=== PATIENT | female | born 1990 | race American Indian/Alaskan Native ===

== ENCOUNTER 2017-04-24 09:35 | Emergency (ER) | payer MEDICAID ==
--- NOTE | 2017-04-24 13:58 | Emergency Department Report ---
ED Fall HPI - General Chief Complaint: Fall Stated Complaint: FALL Time Seen by Provider: 04/24/17 13:52 Source: patient, family (Ryan), EMS Mode of arrival: Wheelchair Limitations: No Limitations - History of Present Illness Initial Comments: Patient presents to emergency room report that she's been told in the past that she has a high probability of having multiple sclerosis and this started at age 22 when she started having blurred vision and weakness in her leg. She said today she misjudged a step today and came out of the passenger seat and slid to the ground because she did not have any strength in her leg. She denies any bruising to her legs. Denies any back pain. Denies any urinary burning frequency or urgency. She has sensation but she said that she doesn't have the strength in her legs. She says she was on the way to a primary care but she just got insurance again to be referred to a neurologist for MRI but because she fell as they took her to the emergency room because she cannot walk. She denies any fever or chills denies any headache. Last menstrual period was 04/03 pain to the lower legs is 3 independent doll. Has a history of blurred vision and weakness in her legs. 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 denies: headache, neck pain, numbness, chest paint, shortness of breath, abdominal pain, hematuria, lightheaded, vertigo, confusion - Related Data Allergies Allergy/AdvReac Type Severity Reaction Status Date / Time burlap Allergy Unknown Uncoded 04/24/17 09:50 ED Review of Systems ROS: Stated complaint: FALL Other details as noted in HPI Comment: All other systems reviewed and negative Constitutional: denies: chills, fever Eyes: vision change (blurred vision on and off) ENT: denies: ear pain, throat pain, hearing loss, congestion Respiratory: no symptoms reported Cardiovascular: denies: chest pain, palpitations, edema, syncope Gastrointestinal: denies: abdominal pain, nausea, vomiting, diarrhea, constipation, hematemesis, melena, hematochezia Musculoskeletal: denies: back pain, joint swelling, arthralgia, myalgia Skin: denies: rash Neurological: weakness, abnormal gait. denies: headache, numbness, paresthesias , confusion, vertigo ED Past Medical Hx - Past Medical History Previous Medical History?: Yes Additional medical history: weakness in legs - Surgical History Past Surgical History?: No - Family History Family history: no significant - Social History Smoking Status: Former Smoker Substance Use Type: Alcohol, Prescribed Other Social History: Single female ED Physical Exam - General Limitations: Physical Limitation General appearance: alert, in no apparent distress - Head Head exam: Present: atraumatic, normocephalic, normal inspection - Eye Eye exam: Present: normal appearance, PERRL, EOMI. Absent: scleral icterus, conjunctival injection, nystagmus, periorbital swelling, periorbital tenderness Pupils: Present: normal accommodation - ENT ENT exam: Present: normal exam, normal orophraynx, mucous membranes moist, TM's normal bilaterally, normal external ear exam - Neck Neck exam: Present: normal inspection, tenderness, full ROM. Absent: meningismus, lymphadenopathy - Respiratory Respiratory exam: Present: normal lung sounds bilaterally. Absent: respiratory distress, chest wall tenderness - Cardiovascular Cardiovascular Exam: Present: regular rate, normal rhythm, normal heart sounds. Absent: systolic murmur, diastolic murmur - GI/Abdominal GI/Abdominal exam: Present: soft, normal bowel sounds. Absent: distended, tenderness, guarding, rebound, rigid - Extremities Exam Extremities exam: Present: normal capillary refill. Absent: normal inspection, full ROM, tenderness, pedal edema, joint swelling, calf tenderness - Expanded Lower Extremity Exam Left Hip exam: Present: normal inspection, pelvic stability. Absent: full ROM, tenderness, swelling, abrasion, laceration, ecchymosis, deformity, crepidus, dislocation, erythema, external rotation, internal rotation, shortening Upper Leg exam: Present: normal inspection. Absent: full ROM, tenderness, swelling, abrasion, laceration, ecchymosis, deformity, crepidus, dislocation, erythema Knee exam: Present: normal inspection. Absent: full ROM, tenderness, swelling, abrasion, laceration, ecchymosis, deformity, crepidus, dislocation, erythema, effusion, pain w/ pronation/supination, full knee extension Lower Leg exam: Present: normal inspection. Absent: full ROM (patient able to move legs but she has severe limitation.), tenderness, swelling, abrasion, laceration, ecchymosis, deformity, crepidus, dislocation, erythema, palpable cord Ankle exam: Present: normal inspection. Absent: full ROM, tenderness, swelling , abrasion, laceration, ecchymosis, deformity, crepidus, dislocation, erythema Foot/Toe exam: Present: normal inspection. Absent: full ROM, tenderness, swelling, abrasion, laceration, ecchymosis, deformity, crepidus, dislocation, erythema, amputation, puncture wound, foreign body, calcaneal tenderness, tenderness at base of 5th metatarsal, nail avulsion, subungual hematoma Neuro vascular tendon exam: Present: no vascular compromise, motor deficit. Absent: pulse deficit, abnormal cap refill, sensory deficit, tendon deficit, extremity cold to touch, pallor, abnormal 2-point discrimination, decreased fine /light touch, foot drop, peroneal nerve deficit, significant pain with passive ROM of distal joint Gait: Positive: unable to bear weight (patient unable to walk.) Right Hip exam: Present: normal inspection, pelvic stability. Absent: full ROM, tenderness, swelling, abrasion, laceration, ecchymosis, deformity, crepidus, dislocation, erythema, external rotation, internal rotation, shortening Upper Leg exam: Present: normal inspection. Absent: full ROM, tenderness, swelling, abrasion, laceration, ecchymosis, deformity, crepidus, dislocation, erythema Knee exam: Present: normal inspection, full knee extension. Absent: full ROM, tenderness, swelling, abrasion, laceration, ecchymosis, deformity, crepidus, dislocation, erythema, effusion, pain w/ pronation/supination, posterior draw sign, pain/laxity with valgus, pain/laxity with varus Lower Leg exam: Present: normal inspection. Absent: full ROM (able to move leg with severe), tenderness ( limitation), swelling, abrasion, laceration, ecchymosis, deformity, crepidus, dislocation, erythema, palpable cord, Joseph's sign Ankle exam: Present: normal inspection. Absent: full ROM, tenderness, swelling , abrasion, laceration, ecchymosis, deformity, crepidus, dislocation, erythema Foot/Toe exam: Present: normal inspection. Absent: full ROM, tenderness, swelling, abrasion, laceration, ecchymosis, deformity, crepidus, dislocation, erythema, amputation, puncture wound, foreign body, calcaneal tenderness, tenderness at base of 5th metatarsal, nail avulsion, subungual hematoma Neuro vascular tendon exam: Present: no vascular compromise, motor deficit. Absent: pulse deficit, abnormal cap refill, sensory deficit, tendon deficit, extremity cold to touch, pallor, abnormal 2-point discrimination, decreased fine /light touch, foot drop, peroneal nerve deficit, significant pain with passive ROM of distal joint Gait: Positive: unable to bear weight - Back Exam Back exam: Present: normal inspection, full ROM. Absent: tenderness, CVA tenderness (R), CVA tenderness (L), muscle spasm, paraspinal tenderness, vertebral tenderness, rash noted - Neurological Exam Neurological exam: Present: alert, oriented X3, abnormal gait (patient unable to weight-bear and stand.), motor sensory deficit (she has limited movement to bilateral lower extremity .1/5 strength to both extremity. She has normal sensation). Absent: reflexes normal (diminished knee and ankle reflexes) - Expanded Neurological Exam Expanded Neurological exam: Absent: innattentive, memory loss-remote event, memory loss- recent event, ataxia, receptive aphasia, expressive aphasia, total aphasia, tremor, protecting the airway Patient oriented to: Present: person, place, time Speech: Present: fluid speech Cranial nerves: EOM's Intact: Normal, Gag Reflex: Normal, Tongue Deviation: Normal, Nystagmus: Normal, Facial Sensation: Normal Cerebellar function: Finger to Nose: Normal, Romberg: Normal Upper motor neuron: Sensory Extinction: Normal Sensory exam: Upper Extremity Light Touch: Normal, Upper Extremity Pin Prick: Normal, Upper Extremity Temperature: Normal, UE 2 Point Discrimination: Normal, Lower Extremity Light Touch: Normal, Lower Extremity Pin Prick: Normal, Lower Extremity Temperature: Normal, LE 2 Point Discrimination: Normal Motor strength exam: RUE: 5, LUE: 5, RLE: 2/1 (1), LLE: 2/1 (1) DTR: bicep (R): 2+, bicep (L): 2+, tricep (R): 2+, tricep (L): 2+, knee (L): 1+ , ankle (R): 1+, ankle (L): 1+ Best Eye Response (Stanislav): (4) open spontaneously Best Motor Response (Stanislav): (6) obeys commands Best Verbal Response (Stanislav): (5) oriented Stanislav Total: 15 - Psychiatric Psychiatric exam: Present: normal affect, normal mood - Skin Skin exam: Present: warm, dry, intact, normal color. Absent: rash ED Course Vital Signs 04/24/17 04/24/17 04/24/17 09:50 16:34 18:59 Temperature 98.9 F 98.9 F 99.2 F Pulse Rate 96 H 94 H 92 H Respiratory 18 16 16 Rate Blood Pressure 148/100 Blood Pressure 126/78 148/74 [Right] O2 Sat by Pulse 100 100 98 Oximetry - Reevaluation(s) Reevaluation #1: 04/24/17 18:50 Patient receiving Solu-Medrol 1 g IV. I spoke with Dr. Linn who evaluated patient and it was decided the patient will be transferred to another hospital for neurology consult due to bilateral lower extremity weakness, episodic blurred vision and CT scan result that suggest demyelination. Patient will be transferred to be evaluated for scoliosis. I spoke with Dr. Dewey at [facility] who is neurologist and he accepted patient. Patient and family agrees with transfer and awaiting bed at [facility] to give report and called for transport. Stable and no change in status since arrival. Reevaluation #2: 04/24/17 20:36 Patient remained stable. Awaiting transfer to [facility] neurology. - Consultations Consultation #1: 04/24/17 18:55 DR Dewey [facility] Neurologist ED Medical Decision Making - Lab Data Result diagrams: 04/24/17 15:16 04/24/17 15:16 Lab Results 04/24/17 04/24/17 04/24/17 Range/Units 15:16 15:16 15:16 WBC 8.5 (4.5-11.0) K/mm3 RBC 4.43 (3.65-5.03) M/mm3 Hgb 12.4 (10.1-14.3) gm/dl Hct 37.9 (30.3-42.9) % MCV 86 (79-97) fl MCH 28 (28-32) pg MCHC 33 (30-34) % RDW 15.6 H (13.2-15.2) % Plt Count 329 (140-440) K/mm3 Lymph % (Auto) 25.4 (13.4-35.0) % [place] % (Auto) 5.8 (0.0-7.3) % Eos % (Auto) 0.8 (0.0-4.3) % Baso % (Auto) 0.3 (0.0-1.8) % Lymph # 2.2 (1.2-5.4) K/mm3 [place] # 0.5 (0.0-0.8) K/mm3 Eos # 0.1 (0.0-0.4) K/mm3 Baso # 0.0 (0.0-0.1) K/mm3 Seg Neutrophils % 67.7 (40.0-70.0) % Seg Neutrophils # 5.8 (1.8-7.7) K/mm3 Sodium 140 (137-145) mmol/L Potassium 3.7 (3.6-5.0) mmol/L Chloride 100.8 (98-107) mmol/L Carbon Dioxide 24 (22-30) mmol/L Anion Gap 19 mmol/L BUN 9 (7-17) mg/dL Creatinine 0.6 L (0.7-1.2) mg/dL Estimated GFR > 60 ml/min BUN/Creatinine Ratio 15.00 % Glucose 95 (65-100) mg/dL Calcium 9.3 (8.4-10.2) mg/dL Total Bilirubin 0.50 (0.1-1.2) mg/dL AST 19 (5-40) units/L ALT 14 (7-56) units/L Alkaline Phosphatase 88 (35-129) units/L Total Protein 8.5 H (6.3-8.2) g/dL Albumin 4.3 (3.9-5) g/dL Albumin/Globulin Ratio 1.0 % HCG, Qual Negative (Negative) Urine Color (Yellow) Urine Turbidity (Clear) Urine pH (5.0-7.0) Ur Specific [place] (1.003-1.030) Urine Protein (Negative) mg/dL Urine Glucose (UA) (Negative) mg/dL Urine Ketones (Negative) mg/dL Urine Blood (Negative) Urine Nitrite (Negative) Urine Bilirubin (Negative) Urine Urobilinogen (<2.0) mg/dL Ur Leukocyte Esterase (Negative) Urine WBC (Auto) (0.0-6.0) /HPF Urine RBC (Auto) (0.0-6.0) /HPF U Epithel Cells (Auto) (0-13.0) /HPF Urine Bacteria (Auto) (Negative) /HPF Urine Mucus /HPF 04/24/17 Range/Units Unknown WBC (4.5-11.0) K/mm3 RBC (3.65-5.03) M/mm3 Hgb (10.1-14.3) gm/dl Hct (30.3-42.9) % MCV (79-97) fl MCH (28-32) pg MCHC (30-34) % RDW (13.2-15.2) % Plt Count (140-440) K/mm3 Lymph % (Auto) (13.4-35.0) % [place] % (Auto) (0.0-7.3) % Eos % (Auto) (0.0-4.3) % Baso % (Auto) (0.0-1.8) % Lymph # (1.2-5.4) K/mm3 [place] # (0.0-0.8) K/mm3 Eos # (0.0-0.4) K/mm3 Baso # (0.0-0.1) K/mm3 Seg Neutrophils % (40.0-70.0) % Seg Neutrophils # (1.8-7.7) K/mm3 Sodium (137-145) mmol/L Potassium (3.6-5.0) mmol/L Chloride (98-107) mmol/L Carbon Dioxide (22-30) mmol/L Anion Gap mmol/L BUN (7-17) mg/dL Creatinine (0.7-1.2) mg/dL Estimated GFR ml/min BUN/Creatinine Ratio % Glucose (65-100) mg/dL Calcium (8.4-10.2) mg/dL Total Bilirubin (0.1-1.2) mg/dL AST (5-40) units/L ALT (7-56) units/L Alkaline Phosphatase (35-129) units/L Total Protein (6.3-8.2) g/dL Albumin (3.9-5) g/dL Albumin/Globulin Ratio % HCG, Qual (Negative) Urine Color Yellow (Yellow) Urine Turbidity Cloudy (Clear) Urine pH 5.0 (5.0-7.0) Ur Specific [place] 1.027 (1.003-1.030) Urine Protein <15 mg/dl (Negative) mg/dL Urine Glucose (UA) Neg (Negative) mg/dL Urine Ketones Neg (Negative) mg/dL Urine Blood Neg (Negative) Urine Nitrite Neg (Negative) Urine Bilirubin Neg (Negative) Urine Urobilinogen < 2.0 (<2.0) mg/dL Ur Leukocyte Esterase Mod (Negative) Urine WBC (Auto) 3.0 (0.0-6.0) /HPF Urine RBC (Auto) 5.0 (0.0-6.0) /HPF U Epithel Cells (Auto) 52.0 H (0-13.0) /HPF Urine Bacteria (Auto) 1+ (Negative) /HPF Urine Mucus 2+ /HPF - Radiology Data Radiology results: report reviewed CT scan of the brain without contrast reports high right frontoparietal hypodensities, not excluded for demyelinization in light of provided history which is bilateral lower extremity weakness and blurred vision. Radiologist suggested an MRI of the brain with and without contrast. - Medical Decision Making ED course: Patient and family presents to emergency room and patient reporting that she been having progressive since age 22 which has been intermittent. She states she also started to experience blurred vision since age 22. She said she had been to a primary care physician on multiple occasion and he told her that there is a high probability that she had but she said she did not have any insurance so she could not follow up with neurology. She says she got insurance and she was on her way to see a primary care physician today so she could be referred to a neurologist that she fell when her legs gave out. Patient has no injury from falling but she cannot stand due to weakness in her bilateral lower extremity. She is able to move and motor movement is limited sensory is intact. Patient neurologically intact except for diminished in reflex in her lower extremities and motor movement. I spoke with Dr. Brandon was the tendon and he evaluated patient and patient was given Solu-Medrol 1 g IV. Patient had lab work and her CBC is stable chemistries stable urinalysis shows that she has a bladder infection with moderate leukocyte Estrace and 1+ bacteria there is a high probability for contamination due to elevated epithelial cell in urinalysis. He isn't 1 g of Rocephin IM to cover urinary tract infection. It was decided the patient will be transferred to [facility] for neurology to evaluate for multiple sclerosis. Patient and family agrees to transport plan. To Dr. Dewey with the neurologist at [facility] in and he accepted patient and transfer center will call back when there is a bed available which will be tonight her transfer center. Diagnostic/labs: The lab section for details and please refer to radiology section for CT scan of the brain results. 1. Bilateral lower extremity weakness-progressing. Suspect multiple sclerosis CT scan of brain with high suspicion for demyelinization. Patient will be transferred to [facility] to neurology service for further evaluation. 2. Arthralgia Bilateral lower extremity 3. Acute cystitis without hematuria 4. Accidental fall due to bilateral lower extremity weakness Patient accepted by [facility] neurology service and await in available bed. Patient is stable and updated. She has been given 1 g of Solu-Medrol and also given Rocephin 1 g for urinary tract infection. Vital Signs are stable. Critical care attestation.: If time is entered above; I have spent that time in minutes in the direct care of this critically ill patient, excluding procedure time. ED Disposition Clinical Impression: Acute cystitis without hematuria Weakness of lower extremity Qualifiers: Laterality: bilateral Qualified Code(s): R29.898 - Other symptoms and signs involving the musculoskeletal system Accidental fall Qualifiers: Encounter type: initial encounter Qualified Code(s): W19.XXXA - Unspecified fall, initial encounter Disposition: DC/TX-70 ANOTHER TYPE HLTHCARE Is pt being admited?: No Does the pt Need Aspirin: No Condition: Stable Referrals: PRIMARY CARE, [Primary Care Provider] - 3-5 Days
[2017-04-24 15:45] LABS: Basophils % (Auto) 0.3 % (0.0-1.8); Eosinophils % (Auto) 0.8 % (0.0-4.3); Hematocrit 37.9 % (30.3-42.9); Hemoglobin 12.4 gm/dl (10.1-14.3); Mean Corpuscular HGB Conc 33 % (30-34); Mean Corpuscular Hemoglobin 28 pg (28-32); Mean Corpuscular Volume 86 fl (79-97); Platelet Count 329 K/mm3 (140-440); Red Blood Count 4.43 M/mm3 (3.65-5.03); Red Cell Distribution Width 15.6 % (13.2-15.2); White Blood Count 8.5 K/mm3 (4.5-11.0)
[2017-04-24 15:53] LABS: Alanine Aminotransferase 14 units/L (7-56); Albumin 4.3 g/dL (3.9-5); Alkaline Phosphatase 88 units/L (35-129); Anion Gap 19 mmol/L; Blood Urea Nitrogen 9 mg/dL (7-17); Calcium 9.3 mg/dL (8.4-10.2); Carbon Dioxide 24 mmol/L (22-30); Chloride 100.8 mmol/L (98-107); Glucose 95 mg/dL (65-100); Potassium 3.7 mmol/L (3.6-5.0); Sodium 140 mmol/L (137-145); Total Protein 8.5 g/dL (6.3-8.2)
[2017-04-24 15:55] LABS: Bacteria,Urine 1+ /HPF (Negative); Bilirubin,Urine NEG (Negative); Blood,Urine NEG (Negative); Ketones,Urine NEG (Negative); Leukocyte Esterase,Urine MOD (Negative); Mucus,Urine 2+ /HPF; Nitrite,Urine NEG (Negative); Protein,Urine <15 mg/dL mg/dL (Negative); Urobilinogen,Urine < 2.0 mg/dL (<2.0)
--- NOTE | 2017-04-24 16:23 | Cat Scan Report ---
CT HEAD WITHOUT CONTRAST INDICATION: Possible MS. Bilateral lower extremity weakness. COMPARISON: None similar. FINDINGS: Noncontrast head CT with few images repeated for motion artifact demonstrate symmetric ventricles and sulci. High right posterior frontal white matter and periventricular parietal hypodensities may be noted as on axial image 41, series 2 measuring up to 1.4 cm, not excluded for subtle infarction versus demyelination, amongst others, on CT alone. No acute hemorrhage, mass effect or midline shift. No abnormal extra axial fluid collections. Normal posterior fossa with preserved basilar cisterns. Normal eye globes. Clear paranasal sinuses and mastoid air cells. Normal calvarium and scalp. CONCLUSION: High right frontoparietal hypodensities, not excluded for demyelination in light of the provided history, amongst others, as described. MRI brain with and without contrast would help further characterize, if so warranted. Thank you for the opportunity to participate in this patient's care.
[2017-04-24] MEDS ORDERED: ROCEPHIN/NS 1 GM/50 ML 1 GM/50 ML BAG IV ONE (19:02)
[2017-04-24 22:52] VITALS: BP 156/77
== END 2017-04-24 23:33 | disposition other institution (70) ==
LOC: ED 09:35
DX: N30.00 Acute cystitis without hematuria (principal); R29.898 Other symptoms and signs involving the musculoskeletal system; Z87.891 Personal history of nicotine dependence; Z88.8 Allergy status to other drugs, medicaments and biological substances; W19.XXXA Unspecified fall, initial encounter; Y93.89 Activity, other specified; Y99.9 Unspecified external cause status; Y92.89 Other specified places as the place of occurrence of the external cause
CPT/HCPCS: 36415; 70450; 80053; 81001; 84703; 85025; 96365; 96367; 99285; J0696; J2930; J7050

== ENCOUNTER 2020-04-21 23:11 | Inpatient (IN) | payer MEDICAID ==
[2020-04-22] MEDS ORDERED: ZOLPIDEM 5 MG TAB PO PRN (01:35)
[2020-04-22] MEDS ORDERED: LACTATED RINGERS 1,000 ML IV SCH (02:00)
--- NOTE | 2020-04-22 03:22 | Ultrasound Report ---
US OB follow up INDICATION / CLINICAL INFORMATION: Bleeding. COMPARISON: None available. FINDINGS: A single live fetus is seen in the uterus with heart rate ranging from 81 to 140. The fetus has 1 arm and 1 leg plus the umbilical cord with fluid in the cervix. Decreased amniotic fluid is seen. Abdominal circumference is 13.7 = 19 weeks 1 day Femur length is 4.1 equals 23 weeks 2 days IMPRESSION: 1. Single live fetus in the uterus with heart rate ranging from 81-140. One arm, one leg and th e umbilical cord with fluid are seen in the cervix. 2. Decreased amniotic fluid Signer Name: Lyndon Camacho MD FACR Signed: 04/22/2020 3:18 AM Workstation Name: [id number]
[2020-04-22] MEDS ORDERED: LANOLIN/ZINC/DIMETHICONE (LANSINOH) 7 GM TP PRN (08:00)
--- NOTE | 2020-04-22 08:12 | History and Physical Report ---
History of Present Illness Date of examination: 04/22/20 Date of admission: April 22, 2020 Chief complaint: Vaginal bleeding History of present illness: 30-year-old -1-0-0 at 21+6 weeks who presents with a chief complaint of vaginal bleeding. The patient arrived via EMS. OB ultrasound was performed that demonstrated evidence of arm and leg being found in the vagina contained within the amniotic sac. The ultrasound showed evidence of cardiac activity. [place] gestation with a ultrasound age of 21 weeks and 2 days. Patient denied any traumatic event for her symptoms. The patient states having history of a prior 26-week delivery for which the secondary to severe prematurity. Past History Past Medical History: other (Multiple sclerosis; uterine fibroids) Past Surgical History: myomectomy, other Social history: single - Obstetrical History Expected Date of Delivery: 08/27/20 Actual Gestation: 21 Week(s) 6 Day(s) : 2 Para: 0 Hx # Term Pregnancies: 0 Number of Pregnancies: 1 Spontaneous Abortions: 0 Induced : 0 Number of Living Children: 0 Medications and Allergies Allergies Allergy/AdvReac Type Severity Reaction Status Date / Time burlap Allergy Unknown Uncoded 04/24/17 09:50 Home Medications Medication Instructions Recorded Confirmed Last Taken Type Vitamin 1 mg PO QDAY 04/22/20 04/22/20 04/21/20 10:00 History Active Meds: Active Medications Lactated Ringer's (Lactated Ringers) 1,000 mls @ 125 mls/hr IV DIRECT TEN Last Admin: 04/22/20 02:01 Dose: 125 mls/hr Documented by: Zolpidem Tartrate (Ambien) 10 mg PO QHS PRN PRN Reason: Sleep Last Admin: 04/22/20 02:00 Dose: 10 mg Documented by: Review of Systems All systems: negative Genitourinary: vaginal bleeding - Vital Signs Vital signs: Vital Signs Pulse BP 77 118/56 04/21/20 23:25 04/21/20 23:25 Temp Pulse Resp BP Pulse Ox 97.9 F 87 18 118/56 100 04/21/20 23:26 04/22/20 08:04 04/21/20 23:26 04/21/20 23:26 04/22/20 08:04 - Physical Exam Breasts: Positive: deferred Cardiovascular: Regular rate Lungs: Positive: Clear to auscultation Results All other labs normal. Assessment and Plan - Patient Problems (1) labor Current Visit: Yes Status: Acute Plan to address problem: Admit for expectant management (2) Incompetent cervix Current Visit: Yes Status: Acute
--- NOTE | 2020-04-22 08:15 | Procedure Note ---
OB Delivery Note - Delivery Date of Delivery: 04/22/20 Surgeon: ANNY SNYDER Estimated blood loss: <100cc - Vaginal Delivery presentation: breech Intrapartum events: labor-<37 weeks, other(please specify) ( demise) Route of delivery: Episiotomy: none Delivery laceration: none Anesthesia: none Delivery comments: The patient experienced spontaneous delivery of the fetus contains within the amniotic sac including the placenta. The patient is neurological sensation is compromised secondary to her multiple sclerosis and she was unaware that the infant had delivered. [facility] The amniotic sac was intact along with the placenta. There was evidence of clear fluid in the amniotic sac upon amniotomy. The infant was nonviable. The infant appeared to be phenotypically normal consistent with a male . There was no e vidence of any active bleeding after the delivery. The patient received routine care. - A at 1 minute: 0 at 5 minutes: 0 Gender: Male
--- NOTE | 2020-04-22 08:17 | Discharge Summary ---
Providers - Providers Date of Admission: April 22, 2020 Date of discharge: 04/22/20 Attending physician: ANNY SNYDER Primary care physician: DEPOSIT REFUND CLERK Hospitalization Reason for admission: other ( delivery) Delivery: Discharge diagnosis: other (Incompetent cervix), intrapartum demise baby: male Hospital course: The patient presented to labor and delivery via EMS secondary to vaginal bleeding. The patient had evidence of delivery. She subsequently delivered a nonviable male infant at 21+6 weeks. Her course was uneventful. Condition at discharge: Good Disposition: DC-01 TO HOME OR SELFCARE - Discharge Diagnoses (1) labor Status: Acute (2) Incompetent cervix Status: Acute Plan - Discharge Medications Prescriptions: Ibuprofen [Motrin] 800 mg PO Q8HR PRN #30 tablet PRN Reason: Pain , Severe (7-10) - Provider Discharge Summary Activity: no sex for 6 weeks Diet: routine Instructions: routine Additional instructions: [] Smoking cessation referral if applicable(refer to patient education folder for contact #) [] Refer to [facility] Booklet Call your doctor immediately for: * Fever > 100.5 * Heavy vaginal bleeding ( >1 pad per hour) * Severe persistent headache * Shortness of breath * Reddened, hot, painful area to leg or breast * Patient can schedule visit in 4 weeks at [facility] [employer] [address] [place] [phone] - Follow up plan
[2020-04-22] MEDS ORDERED: diphenhydrAMINE 25 MG CAP PO PRN (08:30)
[2020-04-22] MEDS ORDERED: ACETAMINOPHEN 325 MG TAB PO PRN (08:30)
[2020-04-22] MEDS ORDERED: WITCH HAZEL/ GLYCERIN PAD TP PRN (08:30)
[2020-04-22] MEDS ORDERED: ONDANSETRON 4 MG/2 ML INJ IV PRN (09:00)
[2020-04-22] MEDS ORDERED: HYDROcodone/ACETAMINOPHEN 5-325 MG TAB PO PRN (09:00)
[2020-04-22] MEDS ORDERED: IBUPROFEN 600 MG TAB PO SCH (09:00)
[2020-04-22] MEDS ORDERED: PROMETHAZINE 25 MG TAB PO PRN (09:00)
[2020-04-22] MEDS ORDERED: PROMETHAZINE 25 MG RECT SUPP PR PRN (09:00)
[2020-04-22 19:25] VITALS: BP 119/83
[2020-04-22 20:24] LABS: Hematocrit 33.4 % (30.3-42.9); Hemoglobin 11.1 gm/dl (10.1-14.3)
[2020-04-22] MEDS ORDERED: MAGNESIUM HYDROXIDE (MOM) ORAL LIQD UDC PO PRN (22:00)
== END 2020-04-22 20:55 | disposition home or self-care (01) | DRG 775 ==
LOC: TRG 23:11 → APU 23:12 → LD 04-22 00:54 → TRG 04-22 08:28
PROVIDERS: ADMIT Obstetrics & Gynecology; ATTEND Obstetrics & Gynecology
PROC: 10E0XZZ Delivery of Products of Conception, External Approach (ICD-10-PCS; principal; 2020-04-22)
DX: O60.12X0 Preterm labor second trimester with preterm delivery second trimester, not applicable or unspecified (principal); O34.32 Maternal care for cervical incompetence, second trimester; Z3A.21 21 weeks gestation of pregnancy; Z37.1 Single stillbirth; O32.1XX0 Maternal care for breech presentation, not applicable or unspecified
CPT/HCPCS: 36415; 76816; 85014; 85018; 86850; 86900; 86901; G0378; J7120